=== PATIENT | male | born 1970 | race Caucasian/White ===

== ENCOUNTER 2018-11-26 13:13 | Emergency (ER) | payer OTHER ==
[~2018-11-26] VITALS: Ht 177.8 cm; Wt 88.6 kg
[2018-11-26 13:14] VITALS: BP 129/92
[2018-11-26] MEDS ORDERED: AMBI10TA PO (13:19)
[2018-11-26] MEDS ORDERED: EPIP0.3I2 IM (13:19)
[2018-11-26] MEDS ORDERED: RANI1TAB38 PO (13:19)
[2018-11-26] MEDS ORDERED: GABA-843 PO (13:19)
[2018-11-26] MEDS ORDERED: CYCL10TA PO (13:19)
[2018-11-26] MEDS ORDERED: LASI40TA9 PO (13:19)
[2018-11-26] MEDS ORDERED: CLEO300C2 PO (13:57)
[2018-11-26] MEDS ORDERED: LIDO1SOL8 PO (13:57)
== END 2018-11-26 14:19 | disposition home or self-care (01) ==
LOC: M ED 13:13
DX: K04.7 Periapical abscess without sinus (principal); L03.211 Cellulitis of face; M54.9 Dorsalgia, unspecified; Z79.899 Other long term (current) drug therapy